=== PATIENT | female | born 1985 | race Caucasian/White ===

== ENCOUNTER 2022-12-11 18:18 | Observation (INO) ==
--- NOTE | 2022-12-11 18:27 | ED Triage Note ---
Date of Service December 11, 2022 History of Present Illness This patient was briefly evaluated while in triage. An abbreviated physical exam was performed. This patient is a 37-year-old Female who presents to the ED for evaluation of sharp stabbing right sided upper abdominal pain that radiates into her back. Began yesterday. standing and moving makes it worse. never had anything like this before. Had diarrhea x 2 days before symptoms began. No nausea or vomiting. No urinary symptoms. Hx hysterectomy and appendectomy. Hx kidney stones and this does not feel similar to stones. Physical Exam CONSTITUTIONAL: mildly uncomfortable SKIN: pink, warm, dry CARDIAC: regular rate and rhythm RESPIRATORY: in no respiratory distress, lungs clear to auscultation ABDOMEN: positive RUQ tenderness, positive ho sign. positive tenderness in R flank Initial orders for labs and / or imaging were placed and patient was placed in the waiting area until a bed is available. Please see further documentation for the full ED course.
[2022-12-11 19:19] LABS: Basophils # (auto) 0.03 K/uL (0-0.2); Basophils % (auto) 0.3 %; Eosinophils # (auto) 0.11 K/uL (0-0.50); Eosinophils % (auto) 1.2 %; Hematocrit (blood only) 38.8 % (37.0-47.0); Hemoglobin 13.3 g/dl (12.0-16.0); Immature Granulocytes # (auto) 0.03 K/uL (0.01-0.20); Immature Granulocytes % (auto) 0.3 %; Lymphocytes % (auto) 41.8 %; Mean Corpuscular Hgb Conc 34.3 g/dL (32.0-36.0); Mean Corpuscular Volume 87.4 fL (80.0-100.0); Mean Platelet Volume 9.7 fL (9.4-12.4); Monocytes % (auto) 4.5 %; Neutrophils # (auto) 4.59 K/uL (1.40-6.50); Neutrophils % (auto) 51.9 %; Platelet Count 307 K/uL (130-400); RDW Coefficient of Variation 12.8 % (11.5-14.5); RDW Standard Deviation 40.9 fL (36.4-46.3); Red Blood Count 4.44 M/uL (4.20-5.40); White Blood Count 8.86 K/ul (4.8-10.8)
[2022-12-11 19:23] LABS: Appearance Urine Clear (Clear); Bilirubin Urine Negative (Negative); Blood Urine Negative (Negative); Color Urine Yellow; Glucose Urine UA Negative (Negative); Ketones Urine Negative (Negative); Leukocyte Esterase Urine Negative (Negative); Nitrite Urine Negative (Negative); Protein Urine Negative (Negative); Specific Gravity Urine 1.017 (1.000-1.030); Urobilinogen Urine Negative (Negative); pH Urine 5.5 (4.5-7.5)
[2022-12-11 19:35] LABS: Albumin Globulin Ratio 1.3 (0.9-2); Albumin Level 4.4 gm/dl (3.4-5.0); BUN Creatinine Ratio 13.4 (10-20); Bilirubin,Total 0.4 mg/dl (0.2-1.0); Calcium 9.7 mg/dl (8.6-10.3); Creatinine Clr Calc Pharmacy 65.7 ml/min; Est GFR (African American) 67.1 ml/min; Est GFR (Non-African American) 57.9 ml/min; Globulin 3.3 gm/dl (2.5-4.0); Potassium 4.3 mmol/L (3.5-5.1); Total Protein 7.7 gm/dl (6.0-8.3)
--- NOTE | 2022-12-11 21:11 | Ultrasound Report ---
Exam(s): US GALLBLADDER EXAM: US Abdomen Limited, Gallbladder CLINICAL HISTORY: Reason for exam: RUQ pain, positive Barriga sign. TECHNIQUE: Real-time ultrasound of the right upper quadrant with image documentation. COMPARISON: None FINDINGS: Liver: Liver measures 14.3 cm. Increased echogenicity of the liver suggestive of hepatic steatosis. Probable fatty sparing along the gallbladder fossa. Gallbladder: No gallstones or sludge. No gallbladder wall thickening or pericholecystic fluid. Negative sonographic Barriga's sign. Common bile duct: Unremarkable as visualized. No stones. No dilation. Normal common bile duct measuring 2.2 mm. Pancreas: Pancreas is not evaluated due to overlying bowel gas. Right kidney: Right kidney measures 10.7 cm in length. No hydronephrosis or stone. Other vasculature: Patent main portal vein with normal directional flow. Free fluid: No ascites. Other findings: Nonspecific hypoechoic material anterior to the liver which could represent body wall soft tissue. Hematoma is not excluded. IMPRESSION: 1. Hepatic steatosis. 2. No sonographic evidence of acute cholecystitis. 3. Nonspecific hypoechoic material anterior to the liver which could represent body wall soft tissue. Hematoma is not excluded. Electronically signed by: Pj Maldonado M.D. 12/11/22 21:10 PM
[2022-12-11] MEDS ORDERED: MoRPHine SULFATE 4 MG/ML 1 ML CARP\\VIAL IV STA ×2 (21:21→23:26)
[2022-12-11] MEDS ORDERED: ACETAMINOPHEN 1,000 MG/100 ML VIAL IV STA (21:21)
--- NOTE | 2022-12-11 21:37 | Emergency Department Note ---
Impression & Plan Abdominal pain, Diarrhea ED Provider Note ED Provider Note NAME: SERENA CAMILO AGE:37 SEX: Female : 1985 ARRIVES VIA: Private vehicle INFORMANT: Patient ED PROVIDER(s): Raisa Nuñez DO CHIEF COMPLAINT: Abdominal pain HPI: This is a 37-year-old female presents emergency room due to concern for worsening abdominal pain that began last night. Patient states began as a dull pain and along her right upper quadrant and has since become steadily worse radiating around into the right flank. She states in the preceding 2 days she did have diarrhea, denies noting any hematochezia or melena. Patient states she does have a history of intermittent colitis but has been well controlled and has not had a flare in 10 years. She states her last colonoscopy was several years ago and she has an upcoming appointment with GI the end of December. She denies any recent change in diet, new medication, known sick contact, recent travel. She denies fevers, chills, nausea or vomiting. She states no change in the pain w ith position or exertion. No recent change in urine. She has had multiple prior abdominal surgeries. PAST MEDICAL HISTORY:See Below PAST SURGICAL HISTORY:See Below FAMILY HISTORY:See Below SOCIAL HISTORY:See Below HOME MEDICATIONS:See Below ALLERGIES:See Below VITALS:See Below PHYSICAL EXAMINATION: GENERAL: alert, tearful appearing, well nourished, no distress, non-toxic EYE EXAM: normal conjunctiva, PERRL and EOM's grossly intact OROPHARYNX: no exudate, no erythema, lips, buccal mucosa, and tongue normal and mucous membranes are moist NECK: supple, no nuchal rigidity, no adenopathy, non-tender LUNGS: Clear to auscultation. Normal chest wall mechanics, no w/r/r HEART: no murmurs, S1 normal and S2 normal ABDOMEN: abdomen soft, tenderness with palpation in the right upper quadrant, right mid lateral abdomen, and right flank with palpation, normo-active bowel sounds, no masses, no rebound or guarding. BACK: Back is symmetrical on inspection and there is no deformity, no midline tenderness, no CVA tenderness. SKIN: no rashes, petechiae, orbruising UPPER EXTREMITIES: upper extremities are grossly normal. FROM, nml pulses b/l. LOWER EXTREMITIES: No pitting edema. FROM, nml pulses b/l. NEURO EXAM: Normal sensorium, cranial nerves II-XII grossly intact, normal speech, no facial droop,nogross weakness of arms, no gross weakness of legs. Gross sensation intact. No ataxia. Vital Signs: reviewed and remarkable Differential Diagnosis: Differential diagnoses includes but is not limited to gastritis, peptic ulcer disease, GERD, gallbladder disease, pancreatitis, small bowel obstruction, ischemic bowel, irritable bowel disease, irritable bowel syndrome, malignancy, hernia, perforation MEDICAL DECISION MAKING: This is a 37 yo female who presents with RUQ abd pain. VS stable and pt afebrile. Labs drawn and sent, IV established, and patient sent initially for US RUQ to r/o biliary etiology. THis was reassuring so we discussed CT imaging after consideration for additional diagnoses. Patient given IVF and IV morphine for pain. CT reassuring also. She was given tylenol, toradol, and bentyl additionally without improvement and still required additional IV narcotics. Given unclear etiology of pain and with persistent need for IV narcotics to control her pain, we discussed additional inpatient evaluation and monitoring. Patient and family in agreement. Case discussed with hospitalist for additional evaluation and mgmt. I do not suspect occult ACS, dissection, PE, or pna. Consultation(s): 0202: Discussed with Dr. Barnes, hospitalist service. ER Treatment Provided: See below Diagnostics Interpreted By Me: -ECG: [] -Cardiac Monitoring: An order was placed for continuous cardiac monitoring. The monitor shows a rate of 78 with normal sinus rhythm. -Laboratory studies: As stated above and show below. -Imaging studies: US RUQ informally reviewed by me did not show obvious cholelithiasis. 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: No Beliefs That Will Affect Care: None Current Living Situation: Alone Feels Safe at Home: Yes Safety Concerns: Feels Safe At This Time Assistive Devices: None Allergies Allergies Allergy/AdvReac Type Severity Reaction Status Date / Time diazepam [From Valium] Allergy Intermediate HIVES--SEE Verified 12/11/22 21:34 COMMENT latex Allergy Intermediate ITCHY RASH Verified 12/11/22 21:34 meperidine [From Demerol] Allergy Intermediate HIVES--SEE Verified 12/11/22 21:34 COMMENT promethazine [From Phenergan] Allergy Intermediate HIVES--SEE Verified 12/11/22 21:34 COMMENT Home Meds Home Medications Medication Instructions Recorded Confirmed ibuprofen 200 mg tablet (Advil) 400 mg PO DIRECTED PRN 12/11/22 12/11/22 PAIN/FEVER Results & Data (ED) Vital Signs Vital Signs - 24 hr 12/12/22 00:05 12/12/22 00:39 Pulse Rate 71 Pulse Rate [Apical] 69 Respiratory Rate 17 Respiratory Effort / Characteristics Non-Labored Spontaneous Respiratory Depth Normal Blood Pressure [Right Arm] 116/82 Blood Pressure Mean [Right Arm] 93 Blood Pressure Position [Right Arm] Sitting Pulse Oximetry 97 Oxygen Delivery Method Room Air Laboratory Data 12/11/22 18:57 12/11/22 18:57 Lab Results 12/11/22 12/11/22 12/11/22 Range/Units 18:57 18:57 19:05 WBC 8.86 (4.8-10.8) K/ul RBC 4.44 (4.20-5.40) M/uL Hgb 13.3 (12.0-16.0) g/dl Hct 38.8 (37.0-47.0) % MCV 87.4 (80.0-100.0) fL MCH 30.0 (25.0-34.0) pg MCHC 34.3 (32.0-36.0) g/dL RDW Std Deviation 40.9 (36.4-46.3) fL RDW Coeff of Zainab 12.8 (11.5-14.5) % Plt Count 307 (130-400) K/uL MPV 9.7 (9.4-12.4) fL Immature Gran % (Auto) 0.3 % Neut % (Auto) 51.9 % Lymph % (Auto) 41.8 % [place] % (Auto) 4.5 % Eos % (Auto) 1.2 % Baso % (Auto) 0.3 % Neut # (Auto) 4.59 (1.40-6.50) K/uL Lymph # (Auto) 3.70 H (1.2-3.4) K/uL Weston # (Auto) 0.40 (0.11-0.59) K/uL Eos # (Auto) 0.11 (0-0.50) K/uL Baso # (Auto) 0.03 (0-0.2) K/uL Immature Gran # (Auto) 0.03 (0.01-0.20) K/uL Sodium 137 (136-145) mmol/L Potassium 4.3 (3.5-5.1) mmol/L Chloride 105 (98-107) mmol/L Carbon Dioxide 26 (21-32) mmol/L Anion Gap 6 (3-11) BUN 16 (6-23) mg/dl Creatinine 1.19 (0.6-1.2) mg/dl Est Cr Clr Drug Dosing 65.7 ml/min Est GFR ( Amer) 67.1 ml/min Est GFR (Non-Af Amer) 57.9 ml/min BUN/Creatinine Ratio 13.4 (10-20) Glucose 113 H (70-99(Fasting)) mg/dl Calcium 9.7 (8.6-10.3) mg/dl Total Bilirubin 0.4 (0.2-1.0) mg/dl AST 25 (13-39) U/L ALT 38 (7-52) U/L Alkaline Phosphatase 121 H (34-104) U/L Total Protein 7.7 (6.0-8.3) gm/dl Albumin 4.4 (3.4-5.0) gm/dl Globulin 3.3 (2.5-4.0) gm/dl Albumin/Globulin Ratio 1.3 (0.9-2) Lipase 37 (11-82) U/L Procalcitonin (0-0.5) ng/ml Urine Color Yellow Urine Appearance Clear (Clear) Urine pH 5.5 (4.5-7.5) Ur Specific [place] 1.017 (1.000-1.030) Urine Protein Negative (Negative) Urine Glucose (UA) Negative (Negative) Urine Ketones Negative (Negative) Urine Blood Negative (Negative) Urine Nitrite Negative (Negative) Urine Bilirubin Negative (Negative) Urine Urobilinogen Negative (Negative) Ur Leukocyte Esterase Negative (Negative) SARS-CoV-2 (PCR) (Negative) Influenza Type A (PCR) (Neg) Influenza Type B (PCR) (Neg) RSV (RT-PCR) (Neg) 12/11/22 12/12/22 Range/Units 19:05 01:32 WBC (4.8-10.8) K/ul RBC (4.20-5.40) M/uL Hgb (12.0-16.0) g/dl Hct (37.0-47.0) % MCV (80.0-100.0) fL MCH (25.0-34.0) pg MCHC (32.0-36.0) g/dL RDW Std Deviation (36.4-46.3) fL RDW Coeff of Zainab (11.5-14.5) % Plt Count (130-400) K/uL MPV (9.4-12.4) fL Immature Gran % (Auto) % Neut % (Auto) % Lymph % (Auto) % [place] % (Auto) % Eos % (Auto) % Baso % (Auto) % Neut # (Auto) (1.40-6.50) K/uL Lymph # (Auto) (1.2-3.4) K/uL [place]on # (Auto) (0.11-0.59) K/uL Eos # (Auto) (0-0.50) K/uL Baso # (Auto) (0-0.2) K/uL Immature Gran # (Auto) (0.01-0.20) K/uL Sodium (136-145) mmol/L Potassium (3.5-5.1) mmol/L Chloride (98-107) mmol/L Carbon Dioxide (21-32) mmol/L Anion Gap (3-11) BUN (6-23) mg/dl Creatinine (0.6-1.2) mg/dl Est Cr Clr Drug Dosing ml/min Est GFR ( Amer) ml/min Est GFR (Non-Af Amer) ml/min BUN/Creatinine Ratio (10-20) Glucose (70-99(Fasting)) mg/dl Calcium (8.6-10.3) mg/dl Total Bilirubin (0.2-1.0) mg/dl AST (13-39) U/L ALT (7-52) U/L Alkaline Phosphatase (34-104) U/L Total Protein (6.0-8.3) gm/dl Albumin (3.4-5.0) gm/dl Globulin (2.5-4.0) gm/dl Albumin/Globulin Ratio (0.9-2) Lipase (11-82) U/L Procalcitonin < 0.05 (0-0.5) ng/ml Urine Color Urine Appearance (Clear) Urine pH (4.5-7.5) Ur Specific [place] (1.000-1.030) Urine Protein (Negative) Urine Glucose (UA) (Negative) Urine Ketones (Negative) Urine Blood (Negative) Urine Nitrite (Negative) Urine Bilirubin (Negative) Urine Urobilinogen (Negative) Ur Leukocyte Esterase (Negative) SARS-CoV-2 (PCR) NEGATIVE (Negative) Influenza Type A (PCR) Negative (Neg) Influenza Type B (PCR) Negative (Neg) RSV (RT-PCR) Negative (Neg) Administered Medications Acetaminophen (Ofirmev) 1,000 mg in 100 mls @ 400 mls/hr IV Q8H PRN PRN Reason: Headache or Pain Stop: 12/15/22 04:57 Last Infusion: 12/12/22 17:39 Dose: 0 mls/hr Documented By: Admin: 12/12/22 17:24 Dose: 400 mls/hr Documented By: Infusion: 12/12/22 05:48 Dose: 0 mls/hr Documented By: ТАТЬЯНА Admin: 12/12/22 05:21 Dose: 400 mls/hr Documented By: ТАТЬЯНА Pantoprazole Sodium 40 mg/ (Syringe) 10 mls @ 5 mls/min IV Q12 JAVIER Stop: 01/11/23 20:59 Last Admin: 12/12/22 20:37 Dose: 5 mls/min Documented By: BARRY Morphine Sulfate (Morphine Sulfate 4 Mg/Ml 1 Ml Carp\Vial) 4 mg IV Q3H PRN PRN Reason: Severe Pain (Scale 7, 8, 9,10) Stop: 12/26/22 14:21 Last Admin: 12/12/22 19:28 Dose: 4 mg Documented By: Admin: 12/12/22 15:20 Dose: 4 mg Documented By: SARAI Polyethylene Glycol (Polyethylene (Miralax) 17 Gm Pack) 17 gm PO DAILY JAVIER Stop: 01/11/23 08:59 Last Admin: 12/12/22 11:44 Dose: Not Given Documented By: AU Discontinued Medications Dicyclomine HCl (Dicyclomine Hcl 10 Mg Cap) 10 mg PO NOW ONE Stop: 12/12/22 00:45 Last Admin: 12/12/22 00:59 Dose: 10 mg Documented By: TOY Acetaminophen (Ofirmev) 1,000 mg in 100 mls @ 400 mls/hr IV NOW STA Stop: 12/11/22 21:35 Last Infusion: 12/11/22 21:54 Dose: 0 mls/hr Documented By: Admin: 12/11/22 21:30 Dose: 400 mls/hr Documented By: ELISA Sodium Chloride (Nss 1000ml) 1,000 mls @ 125 mls/hr IV .Q8H JAVIER Stop: 01/11/23 00:59 Last Infusion: 12/12/22 16:12 Dose: 0 mls/hr Documented By: Admin: 12/12/22 09:28 Dose: 125 mls/hr Documented By: Infusion: 12/12/22 09:01 Dose: 125 mls/hr Documented By: Admin: 12/12/22 01:01 Dose: 125 mls/hr Documented By: TOY Sincalide 1.7 mcg/ Sodium (Chloride) 101.7 mls @ 200 mls/hr IV TODAY@1330 JAVIER Stop: 12/12/22 18:00 Last Infusion: 12/12/22 14:36 Dose: 0 mls/hr Documented By: Admin: 12/12/22 14:05 Dose: 200 mls/hr Documented By: ZANE Ioversol (Optiray 350 100ml) 86 ml IV ONCE ONE Stop: 12/11/22 21:47 Last Admin: 12/11/22 21:47 Dose: 86 ml Documented By: SANAM Ketorolac Tromethamine (Ketorolac Tromethamine 15 Mg/Ml Vial) 10 mg IV NOW ONE Stop: 12/12/22 00:45 Last Admin: 12/12/22 00:59 Dose: 10 mg Documented By: TOY Ketorolac Tromethamine (Ketorolac Tromethamine 15 Mg/Ml Vial) 10 mg IV NOW ONE Stop: 12/12/22 07:32 Last Admin: 12/12/22 07:44 Dose: 10 mg Documented By: YOKASTA Morphine Sulfate (Morphine Sulfate 4 Mg/Ml 1 Ml Carp\Vial) 4 mg IV NOW STA Stop: 12/11/22 21:22 Last Admin: 12/11/22 21:30 Dose: 4 mg Documented By: RSL Morphine Sulfate (Morphine Sulfate 4 Mg/Ml 1 Ml Carp\Vial) 4 mg IV NOW STA Stop: 12/11/22 23:27 Last Admin: 12/11/22 23:38 Dose: 4 mg Documented By: CC Morphine Sulfate (Morphine Sulfate 4 Mg/Ml 1 Ml Carp\Vial) 4 mg IV Q3H PRN PRN Reason: Pain (6,7,8,9,10) Stop: 12/26/22 01:57 Last Admin: 12/12/22 02:10 Dose: 4 mg Documented By: CC Imaging Data Radiologist's Impression: Gallbladder Ultrasound 12/11/22 18:28 Exam(s): US GALLBLADDER EXAM: US Abdomen Limited, Gallbladder CLINICAL HISTORY: Reason for exam: RUQ pain, positive Barriga sign. TECHNIQUE: Real-time ultrasound of the right upper quadrant with image documentation. COMPARISON: None FINDINGS: Liver: Liver measures 14.3 cm. Increased echogenicity of the liver suggestive of hepatic steatosis. Probable fatty sparing along the gallbladder fossa. Gallbladder: No gallstones or sludge. No gallbladder wall thickening or pericholecystic fluid. Negative sonographic Barriga's sign. Common bile duct: Unremarkable as visualized. No stones. No dilation. Normal common bile duct measuring 2.2 mm. Pancreas: Pancreas is not evaluated due to overlying bowel gas. Right kidney: Right kidney measures 10.7 cm in length. No hydronephrosis or stone. Other vasculature: Patent main portal vein with normal directional flow. Free fluid: No ascites. Other findings: Nonspecific hypoechoic material anterior to the liver which could represent body wall soft tissue. Hematoma is not excluded. IMPRESSION: 1. Hepatic steatosis. 2. No sonographic evidence of acute cholecystitis. 3. Nonspecific hypoechoic material anterior to the liver which could represent body wall soft tissue. Hematoma is not excluded. Electronically signed by: Pj Maldonado M.D. 12/11/22 21:10 PM Abdomen/Pelvis CT 12/11/22 21:21 Exam(s): CT ABDOMEN + PELVIS With Contrast EXAM: CT Abdomen and Pelvis With Intravenous Contrast CLINICAL HISTORY: Reason for exam: right sided abd pain. TECHNIQUE: Axial computed tomography images of the abdomen and pelvis with intravenous contrast. Automated exposure control was utilized for the study. A dose lowering technique was utilized adhering to the principles of ALARA. CONTRAST: Contrast must be dictated COMPARISON: No relevant prior studies available. FINDINGS: Lung bases: Unremarkable. No mass. No consolidation. ABDOMEN: Liver: Hepatic steatosis. Gallbladder and bile ducts: Unremarkable. No calcified stones. No ductal dilation. Pancreas: Unremarkable. No mass. No ductal dilation. Spleen: Unremarkable. No splenomegaly. Adrenals: Unremarkable. No mass. Kidneys and ureters: Unremarkable. No hydronephrosis or delayed nephrogram. Stomach and bowel: Diverticulosis, without acute diverticulitis. No small bowel obstruction. No free intraperitoneal air. PELVIS: Appendix: No acute appendicitis. Bladder: Decompressed urinary bladder. Reproductive: Unremarkable as visualized. ABDOMEN and PELVIS: Intraperitoneal space: Unremarkable. No free air. No significant fluid collection. Bones/joints: No acute fracture. No dislocation. Soft tissues: Unremarkable. Vasculature: Unremarkable. No abdominal aortic aneurysm. Lymph nodes: Unremarkable. No enlarged lymph nodes. IMPRESSION: No acute findings in the abdomen or pelvis. Electronically signed by: Ángel Joseph MD 12/11/22 23:57 PM Discharge Plan Visit Data Chief Complaint: Flank Pain Stated Complaint: SEVERE FLANK PAIN R SIDE,INTO BACK ED Provider: Raisa Nuñez Discharge Problem: Abdominal pain, Diarrhea Patient Disposition: Admitted As Inpatient Discharge Instructions Interventions: ED Discharge Assessment Last Done: 12/12/22 04:11
[2022-12-11] MEDS ORDERED: OPTIRAY 350 100ml IV ONE (21:46)
--- NOTE | 2022-12-11 23:58 | CT Scan Report ---
Exam(s): CT ABDOMEN + PELVIS With Contrast EXAM: CT Abdomen and Pelvis With Intravenous Contrast CLINICAL HISTORY: Reason for exam: right sided abd pain. TECHNIQUE: Axial computed tomography images of the abdomen and pelvis with intravenous contrast. Automated exposure control was utilized for the study. A dose lowering technique was utilized adhering to the principles of ALARA. CONTRAST: Contrast must be dictated COMPARISON: No relevant prior studies available. FINDINGS: Lung bases: Unremarkable. No mass. No consolidation. ABDOMEN: Liver: Hepatic steatosis. Gallbladder and bile ducts: Unremarkable. No calcified stones. No ductal dilation. Pancreas: Unremarkable. No mass. No ductal dilation. Spleen: Unremarkable. No splenomegaly. Adrenals: Unremarkable. No mass. Kidneys and ureters: Unremarkable. No hydronephrosis or delayed nephrogram. Stomach and bowel: Diverticulosis, without acute diverticulitis. No small bowel obstruction. No free intraperitoneal air. PELVIS: Appendix: No acute appendicitis. Bladder: Decompressed urinary bladder. Reproductive: Unremarkable as visualized. ABDOMEN and PELVIS: Intraperitoneal space: Unremarkable. No free air. No significant fluid collection. Bones/joints: No acute fracture. No dislocation. Soft tissues: Unremarkable. Vasculature: Unremarkable. No abdominal aortic aneurysm. Lymph nodes: Unremarkable. No enlarged lymph nodes. IMPRESSION: No acute findings in the abdomen or pelvis. Electronically signed by: Ángel Joseph MD 12/11/22 23:57 PM
[2022-12-12] MEDS ORDERED: KETOROLAC TROMETHAMINE 15 MG/ML VIAL IV ONE ×2 (00:44→07:31)
[2022-12-12] MEDS ORDERED: DICYCLOMINE HCL 10 MG CAP PO ONE (00:44)
[2022-12-12] MEDS: SODIUM CHLORIDE 0.9% 1000ML 1,000 ML IV SCH ×2 (01:01→09:28)
--- NOTE | 2022-12-12 01:52 | History & Physical Report ---
Date of Service December 12, 2022 Assessment & Plan (1) Right upper quadrant pain: Plan: 37 F with no significant PMH, family history of colon cancer, who presents with abdominal pain, diarrhea x2 days. Now admitted for further work-up of abdominal pain Right upper quadrant pain -Afebrile. Hemodynamically stable. No leukocytosis. Mildly elevated alkaline phosphatase (121). AST/ALT normal. -Hepatic steatosis on RUQ US. No gallstones or gallbladder wall thickening seen. CT A/P negative. -Patient symptoms still clinically consistent with cholecystitis/other hepatobiliary pathology. * Admit to [facility] * HIDA scan ordered * NPO. IV NS@maintenance rate. * IV morphine for pain control. * Trend LFTs, transaminases. Code: Full code Dispo: Med-Surg FEN/GI: NPO. NSS@maintenance rate DVT Prophylaxis: Lovenox 40 mg q24h PT/OT: No Consults: History of Present Illness Primary Care Provider: Melvina Clifford Mirian is a 37-year-old woman with no significant past medical history, who presents today with new onset abdominal pain radiating to the flank and back since yesterday. She also reports diarrhea x2 days, as well as pain with defecation radiating to the back, since yesterday. Pain has been refractory to multiple doses of p.o. ibuprofen. She came to the emergency room after the abdominal pain radiated to her back became more constant after initially presenting intermittently. In the ED, labs were mostly normal. AST and ALT were both normal. Urinalysis was negative. However, she had an elevated alkaline phosphatase of 121. Lipase was normal at 37. CT A/P was mostly negative. However, right upper quadrant ultrasound showed hepatic steatosis. No gallstones or gallbladder wall thickening were noted on imaging. She received IV Toradol, IV morphine, IV Tylenol, and p.o. dicyclomine. She was then started on IV fluids and hospitalist was consulted for admission. On admission, she continues to report excruciating RUQ abdominal pain, 8/10. She denies headache, chest pain, shortness of breath, nausea, vomiting, melena, hematochezia, or fever/chills. She has a family history of colon cancer and sees GI regularly for routine colonoscopies. She initially tried to reach out to GI specialist but earliest appointment in December. She denies alcohol consumption x2 years. Allergies Allergy/AdvReac Type Severity Reaction Status Date / Time diazepam [From Valium] Allergy Intermediate HIVES--SEE Verified 12/11/22 21:34 COMMENT latex Allergy Intermediate ITCHY RASH Verified 12/11/22 21:34 meperidine [From Demerol] Allergy Intermediate HIVES--SEE Verified 12/11/22 21:34 COMMENT promethazine [From Phenergan] Allergy Intermediate HIVES--SEE Verified 12/11/22 21:34 COMMENT Home Medications Medication Instructions Recorded Confirmed Type ibuprofen 200 mg tablet (Advil) 400 mg PO DIRECTED PRN 12/11/22 12/11/22 History PAIN/FEVER Past Med/Surg History Social History Smoking Status: Never smoker Hx Alcohol Use: Yes Alcohol type: beer Hx Substance Use: No Preferred Language: Northern Irish Communication Ability: Effective Seo Coordinator Required: No Beliefs That Will Affect Care: None Current Living Situation: Alone Feels Safe at Home: Yes Safety Concerns: Feels Safe At This Time Assistive Devices: None Review of Systems Review of Systems: All systems reviewed & are unremarkable except as noted in HPI & below Physical Exam Physical Exam: General: Mildly obese woman in moderate distress. HEENT: PERRLA. Normal conjunctiva, anicteric sclera. Oropharynx normal. Respiratory: Normal respiratory effort, CTABL. Cardiovascular: RRR without murmurs, gallops, or rubs. No edema. GI: RUQ tenderness to palpation. Positive Barriga sign. Right flank/back tenderness to palpation. Neuro: Alert and oriented x3. Results & Data Results & Data Vital Signs (Past 12 Hours) Vital Signs Temp Pulse Pulse Resp BP BP Pulse Ox 12/12/22 00:39 71 12/12/22 00:05 69 17 116/82 97 12/11/22 21:55 81 20 127/83 98 12/11/22 18:23 36.6 C 75 16 131/89 98 O2 Del Method 12/12/22 00:39 12/12/22 00:05 Room Air 12/11/22 21:55 Room Air 12/11/22 18:23 Supervising Physician Co-Signing Physician Notes Patient seen and examined, chart reviewed, case discussed with Dr. Watson and I agree with the assessment and plan as above. In brief, patient is a 37yo female with history no significant past medical history presenting with ongoing of RUQ and flank pain ongoing. On exam she is afebrile, HD stable Skin - no jaundice HEENT - MMM, Neck supple, no icterus Heart - +S1/S2, regular, no m/r/g Lungs - CTA Abd - +BS, soft, tender in RUQ with +Barriga's sign Ext - warm, well perfused Labs and images reviewed. No leukocytosis. Mild elevation of AP at 121. Gallbladder ultrasound with hepatic steatosis, no evidence of acute cholecystitis. Hypoechoic material in liver possibly body wall soft tissue vs hematoma Abdominal/Pelvis CT - no acute findings Assessment/plan 37yo female with ongoing RUQ pain, severe. Suspect gallbladder? Imaging thus far has been unremarkable -Check HIDA scan -Pain control, antiemetics as needed -Remainder as above Resident Activity Tracking Resident Involvement: Resident Care Provided Care Provided: Adult Hospital Medicine
[2022-12-12] MEDS ORDERED: MoRPHine SULFATE 4 MG/ML 1 ML CARP\\VIAL IV PRN (01:58)
[2022-12-12] MEDS ORDERED: MoRPHine SULFATE 2 MG/ML CARP IV PRN ×2 (01:58→14:22)
[2022-12-12 02:20] LABS: Influenza A virus by PCR Negative (Neg); Influenza B virus by PCR Negative (Neg); RSV by PCR Negative (Neg); SARS CoV2 RNA(COVID-19) Ceph NEGATIVE (Negative)
[2022-12-12] MEDS: ACETAMINOPHEN 1,000 MG/100 ML VIAL IV PRN ×2 (05:21→17:24)
[2022-12-12] MEDS: POLYETHYLENE (MIRALAX) 17 GM PACK PO SCH (11:44)
[2022-12-12] MEDS ORDERED: SINCALIDE 1.7 MCG in 0.9 % SODIUM CHLORIDE 100 ML IV SCH (13:30)
--- NOTE | 2022-12-12 14:58 | Nuclear Medicine Report ---
NUCLEAR MEDICINE HEPATOBILIARY SCAN WITH EJECTION FRACTION HISTORY: RUQ pain COMPARISON: Abdominal ultrasound 12/11/2022. TECHNIQUE: Immediately following the intravenous administration of 5.0 mCi Tc-99m Choletec, dynamic a nterior abdominal imaging pre/post 1.7 mcg of Kinevac was performed. FINDINGS: Uniform hepatic tracer accumulation is shown. Prompt intrahepatic biliary excretion is seen. The gall bladder, common bile duct, and small bowel are all visualized by 20 minutes. This appearance represen ts the normal sequence of biliary excretion. The gall bladder ejection fraction following administration of Kinevac was 83% (normal >35%). IMPRESSION: 1. No evidence for cystic duct obstruction. 2. Gallbladder ejection fraction calculated to be 83 %. ACT 112: Negative or not required by law. Electronically signed by: Wesly Sanon M.D. 12/12/2022 2:57 PM
--- NOTE | 2022-12-12 15:17 | Hospitalist Progress Note ---
Date of Service December 12, 2022 Assessment & Plan (1) Right upper quadrant pain: Plan: 37 F with no significant PMH, family history of colon cancer, who presents with abdominal pain, diarrhea x2 days. Now admitted for further work-up of abdominal pain Right upper quadrant/ Epigastric pain -Afebrile. Hemodynamically stable. No leukocytosis. Mildly elevated alkaline phosphatase (121). AST/ALT normal. -Hepatic steatosis on RUQ US. No gallstones or gallbladder wall thickening seen. CT A/P negative. -US, CT, HIDA all negative--> not indicative of gallbladder pathology at this time -Lipase negative -Risk factors present for stomach/duodenal ulcer--> daily NSAID use w/o gi protection, stress * NPO after midnight, GI consulted to [facility] for endoscopy need, appreciate recs. * IV morphine for pain control. Code: Full code Dispo: Med-Surg FEN/GI: Low fat, NPO after midnight DVT Prophylaxis: Lovenox 40 mg q24h PT/OT: No Consults: GI Admission and Anticipated Discharge Date Admission Date: ATTESTATION I also saw the patient and confirmed mosley portions of the history and exam. I agree with the impression and plan in the resident documentation, and as summarized below. She is resting in bed. Complains of right upper quadrant pain. She tried eating some potato chips, seemingly made a little bit worse. She does note having panendoscopy about 2-3 years ago -per her recollection, colonoscopy demonstrated diverticulosis and some colonic polyps. She does not recall the results of the upper endoscopy. Apparently both done in [facility]. EXAM 130/84, 70, 21, 36.7, 99% room air Alert and oriented. Heart regular rate and rhythm Respirations nonlabored Right upper quadrant tenderness. No rebound DATA Labs Admission laboratory data relatively unremarkable except for mildly elevated alkaline phosphatase of [address] scan abdomen and pelvis completed 12/11/2022 shows no acute findings in the abdomen or pelvis. HIDA scan completed today shows no evidence of cystic duct obstruction, gallbladder ejection fraction calculated be 83% IMPRESSION & PLAN Right upper quadrant pain Agree with GI consultation N.p.o. after midnight in case they wish to pursue upper endoscopy Continue Protonix 40 mg IV twice daily Morphine as needed pain Zofran as needed nausea Additional per resident documentation Subjective Patient seen at bedside this morning. No acute events reported overnight. Patient large amount of discomfort and tearful during discussion. Seems to have a 2-day progressively worsening right upper quadrant pain that does not seem to be associated with food. No nausea or vomiting. Does have some loose stools for the past 2 days. No blood in the stool. No vomiting. She did eat yesterday which did not worsen her symptoms. Notes the pain radiates to her back and also is in her epigastrium as well. Continually asked for pain medication. Otherwise no other complaints at this time. Review of Systems Review of Systems: Per HPI Physical Exam Constitutional: WD/WN, vitals as above Eyes: + anicteric sclerae Neck: normal visual inspection Respiratory: normal respiratory effort Cardiovascular: RRR, no murmur, no edema Gastrointestinal (Abdomen): Inspection/Auscultation: abdomen normal to inspection and normal bowel sounds; abdomen not distended Percussion/Palpation: + abdomen tender (Very tender in the RUQ and epigastrum) Musculoskeletal: Head/Neck/Chest: normocephalic and head atraumatic Skin: no rashes, warm and dry Neurologic: moves all extremities Results & Data Results & Data Vital Signs (Past 12 Hours) Vital Signs Temp Pulse Pulse Resp BP Pulse Ox O2 Del Method 12/12/22 08:05 36.7 C 74 18 110/66 95 Room Air 12/12/22 04:54 36.5 C 88 16 137/79 97 Room Air
[2022-12-12] MEDS: MoRPHine SULFATE 4 MG/ML 1 ML CARP\\VIAL IV PRN ×2 (15:20→19:28)
[2022-12-12] MEDS: PANTOprazole 40 MG in SYRINGE 0 ML IV SCH (20:37)
[2022-12-13] MEDS: MoRPHine SULFATE 4 MG/ML 1 ML CARP\\VIAL IV PRN ×6 (04:16→21:45)
[2022-12-13 07:04] LABS: Hematocrit (blood only) 39.4 % (37.0-47.0); Hemoglobin 13.3 g/dl (12.0-16.0); Mean Corpuscular Hemoglobin 29.9 pg (25.0-34.0); Mean Corpuscular Hgb Conc 33.8 g/dL (32.0-36.0); Mean Corpuscular Volume 88.5 fL (80.0-100.0); Mean Platelet Volume 9.6 fL (9.4-12.4); Platelet Count 264 K/uL (130-400); RDW Coefficient of Variation 12.7 % (11.5-14.5); Red Blood Count 4.45 M/uL (4.20-5.40)
[2022-12-13 07:27] LABS: Bilirubin,Total 0.4 mg/dl (0.2-1.0); Calcium 9.5 mg/dl (8.6-10.3); Magnesium 1.9 mg/dl (1.7-2.4); Potassium 4.4 mmol/L (3.5-5.1)
[2022-12-13 07:33] LABS: Albumin Globulin Ratio 1.4 (0.9-2); BUN Creatinine Ratio 17.6 (10-20); Creatinine Clr Calc Pharmacy 88.1 ml/min; Est GFR (African American) 92.8 ml/min; Globulin 2.9 gm/dl (2.5-4.0); Total Protein 6.9 gm/dl (6.0-8.3)
[2022-12-13 07:39] LABS: Estimated Average Glucose 114 mg/dl; Hemoglobin A1C 5.6 % (4.5-5.6)
[2022-12-13] MEDS: LACTATED RINGER'S 1,000 ML IV SCH ×2 (07:45→21:13)
[2022-12-13] MEDS: PANTOprazole 40 MG in SYRINGE 0 ML IV SCH ×2 (08:42→20:59)
[2022-12-13] MEDS: ONDANSETRON INJ 2 MG/ML 2 ML VIAL IV PRN ×2 (08:42→18:27)
--- NOTE | 2022-12-13 10:13 | Gastrointestinal Consultation ---
Date of Consultation December 13, 2022 Assessment & Plan (1) Abdominal pain: Discussed case with Dr. Moses who helped advised on plan. - patient is agreeable to EGD today to further evaluate. - continue protonix 40mg IV BID. - we discussed avoiding nsaids. (2) Fatty liver: - patient tells me she is aware of this. we discussed diet and exercise. discussed possible progression to cirrhosis. she tells me she is working on weight loss. Supervising Physician Co-Signing Physician Notes Agree with QUANG Davis as above Abd: Soft, tender, ND, +BS Continue current therapy and supportive care Proceed with EGD now History of Present Illness Reason for Consultation: epigastric/RUQ tenderness Requesting Physician: Beny Musa DO Attending Physician: Venancio Ta DO History of Present Illness 37 year old female who presented to the ED for evaluation of sharp, stabbing, RUQ/epigastric abdominal pain that radiates into her back. she tells me that she has had this pain off and on since August 2022 however it got significantly worse 2 days ago. rated 10/10. she also admits to nausea. she tells me that since August 2022 she has been using advil frequently for pain. She typically sees GI in [place] but they were not able to see her until December so she came to the hospital. She was started on PPI BID but has not felt any change in symptoms. she denies tobacco or etoh use. she tells me bowels are predominantly constipated as an outpatient. She can go a week between bowel movements. she does admit to some diarrhea for 2 days prior to admission. no stools since being admitted. she denies any brbpr or melena. denies any emesis, heartburn, dysphagia, unintentional weight loss. Per patient, last colonoscopy was in 2020 with diverticulosis (I do not have records) and was done in [place]. she tells me she has not had an egd before. 12/13/22 cbc, lfts unremarkable. US 12/11/22 fatty liver, nonspecific hypoechoic material anterior to liver that is possibly hematoma CT abdomen/pelvis 12/11 unremarkable. HIDA 12/12/22 EF 83% Allergies Allergy/AdvReac Type Severity Reaction Status Date / Time diazepam [From Valium] Allergy Intermediate HIVES--SEE Verified 12/11/22 21:34 COMMENT latex Allergy Intermediate ITCHY RASH Verified 12/11/22 21:34 meperidine [From Demerol] Allergy Intermediate HIVES--SEE Verified 12/11/22 21:34 COMMENT promethazine [From Phenergan] Allergy Intermediate HIVES--SEE Verified 12/11/22 21:34 COMMENT Home Medications Medication Instructions Recorded Confirmed Type ibuprofen 200 mg tablet (Advil) 400 mg PO DIRECTED PRN 12/11/22 12/11/22 History PAIN/FEVER Patient History Social History Smoking Status: Never smoker Hx Alcohol Use: Yes Alcohol type: beer Hx Substance Use: No Preferred Language: Wolof Communication Ability: Effective Tandem Mill Roller Required: No Beliefs That Will Affect Care: None Current Living Situation: Alone Feels Safe at Home: Yes Safety Concerns: Feels Safe At This Time Assistive Devices: None Review of Systems Review of Systems: All systems reviewed & are unremarkable except as noted in HPI & below Physical Exam Constitutional: WD/WN, vitals as above Respiratory: normal respiratory effort, lungs clear to auscultation Cardiovascular: RRR, no murmur, no edema Gastrointestinal (Abdomen): epigastric/RUQ tenderness to palpation, no guarding, soft. normal bowel sounds. Skin: no rashes, warm and dry Psychiatric: Orientation: alert and oriented x 3 Affect: euthymic affect Results & Data Vital Signs (Past 12 Hours) Vital Signs Temp Pulse Resp BP Pulse Ox O2 Del Method 12/13/22 07:00 97.9 F 70 18 130/83 97 Room Air PG Care Time/CCT Total # of Minutes Spent Total Time Spent with Patient: Total time spent is greater than 50% in coordination of care (as documented) at patient's floor/unit and/or counseling patient: Coding Level of Care Code 59995 IN/OBS CONSULT LVL 3,45M Diagnoses Abdominal pain R10.9 Fatty liver K76.0 Time Spent (min) 50
[2022-12-13] MEDS: ACETAMINOPHEN 1,000 MG/100 ML VIAL IV PRN ×2 (10:20→19:40)
[2022-12-13] MEDS ORDERED: PANTOprazole 40 MG in SYRINGE 0 ML IV SCH (11:00)
--- NOTE | 2022-12-13 11:42 | Anesthesiology Consultation ---
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 Surgery Operation Date: 12/13/22 16:55 Proposed Procedures p Esophagogastroduodenoscopy Dr Moses - Александр Moses, DO Height/Weight Height: 5 ft 4 in Weight: 84.395 kg Allergies Allergy/AdvReac Type Severity Reaction Status Date / Time diazepam [From Valium] Allergy Intermediate HIVES--SEE Verified 12/11/22 21:34 COMMENT latex Allergy Intermediate ITCHY RASH Verified 12/11/22 21:34 meperidine [From Demerol] Allergy Intermediate HIVES--SEE Verified 12/11/22 21:34 COMMENT promethazine [From Phenergan] Allergy Intermediate HIVES--SEE Verified 12/11/22 21:34 COMMENT Medications Home Medications Medication Instructions Recorded Confirmed Last Taken ibuprofen 200 mg tablet (Advil) 400 mg PO DIRECTED PRN 12/11/22 12/11/22 12/11/22 15:00 PAIN/FEVER Active Medications Generic Name Dose Route Start Last Admin Trade Name Adeelq PRN Reason Stop Dose Admin Acetaminophen 1,000 mg in 100 mls @ 400 mls/hr 12/12/22 04:58 12/13/22 11:20 Ofirmev IV 12/15/22 04:57 Infused Q8H PRN Infusion Headache or Pain Pantoprazole Sodium 40 mg/ 10 mls @ 5 mls/min 12/12/22 21:00 12/13/22 08:42 Syringe IV 01/11/23 20:59 5 mls/min Q12 JAVIER Administration Lactated Ringer's 1,000 mls @ 80 mls/hr 12/13/22 07:00 12/13/22 07:45 Lr IV 12/14/22 07:59 80 mls/hr .[id number] JAVIER Administration Morphine Sulfate 2 mg 12/12/22 14:22 12/12/22 22:50 Morphine Sulfate 2 Mg/Ml Carp IV 12/26/22 14:21 2 mg Q3H PRN Administration Moderate Pain (Scale 4, 5, 6) Morphine Sulfate 4 mg 12/12/22 14:22 12/13/22 11:09 Morphine Sulfate 4 Mg/Ml 1 Ml Carp\Vial IV 12/26/22 14:21 4 mg Q3H PRN Administration Severe Pain (Scale 7, 8, 9,10) Ondansetron HCl 4 mg 12/12/22 01:58 12/13/22 08:42 Ondansetron Inj 2 Mg/Ml 2 Ml Vial IV 01/11/23 01:57 4 mg Q6H PRN Administration Nausea And Vomiting Polyethylene Glycol 17 gm 12/12/22 09:00 12/12/22 11:44 Polyethylene (Miralax) 17 Gm Pack PO 01/11/23 08:59 Not Given DAILY JAVIER Social History Smoking Status: Never smoker Hx Alcohol Use: Yes Alcohol type: beer alcohol intake frequency: holidays/special occasions only Hx Substance Use: No Physical Exam Vital Signs Last Vital Signs Temp 98.2 F 12/13/22 11:00 Pulse 79 12/13/22 11:00 Resp 20 12/13/22 11:00 BP 141/83 H 12/13/22 11:00 Pulse Ox 98 12/13/22 11:00 O2 Del Method Room Air 12/13/22 11:00 Testing Laboratory Results 12/13/22 06:41 12/13/22 06:41 Hemoglobin A1c 5.6 % (4.5-5.6) 12/13/22 06:41 Urine Color Yellow 12/11/22 19:05 Urine Appearance Clear (Clear) 12/11/22 19:05 Urine pH 5.5 (4.5-7.5) 12/11/22 19:05 Ur Specific [place] 1.017 (1.000-1.030) 12/11/22 19:05 Urine Protein Negative (Negative) 12/11/22 19:05 Urine Glucose (UA) Negative (Negative) 12/11/22 19:05 Urine Ketones Negative (Negative) 12/11/22 19:05 Urine Nitrite Negative (Negative) 12/11/22 19:05 Ur Leukocyte Esterase Negative (Negative) 12/11/22 19:05
[2022-12-13] MEDS ORDERED: LIDOCAINE 2% MPF LOCAL 5 ML VIAL ONE (14:04)
[2022-12-13] MEDS ORDERED: PROPOFOL IV EMULSION 10 MG/ML 20 ML VIAL IV ONE (14:04)
[2022-12-13] MEDS ORDERED: ONDANSETRON INJ 2 MG/ML 2 ML VIAL ONE (14:09)
[2022-12-13] MEDS ORDERED: GLYCOPYRROLATE 0.2 MG/ML VIAL ONE (14:09)
[2022-12-13] MEDS ORDERED: fentaNYL citrate PF 100 MCG/2 ML VIAL ONE (14:09)
[2022-12-13] MEDS ORDERED: MIDAZOLAM HCL 1 MG/ML 2ML VIAL ONE (14:17)
--- NOTE | 2022-12-13 14:52 | Anesthesiology Progress Note ---
Date of Service December 13, 2022 Anesthesia Post Procedure Vital Signs Vital Signs: Temp Pulse Resp BP BP Pulse Ox O2 Del Method 12/13/22 14:39 103 H 16 125/83 96 Room Air 12/13/22 13:07 97.2 F L 78 16 113/76 94 Room Air 12/13/22 11:00 98.2 F 79 20 141/83 H 98 Room Air 12/13/22 07:00 97.9 F 70 18 130/83 97 Room Air 12/12/22 22:00 98.2 F 76 16 114/70 97 Room Air 12/12/22 15:17 98.1 F 70 21 130/84 99 Room Air Pain Intensity Right Abdomen: Pain Intensity: 8 Transfer of Care Handoff Completed per policy Notes Mental Status: alert / awake / arousable and participated in evaluation Patient Amnestic to Procedure: Yes Nausea / Vomiting: adequately controlled Pain: adequately controlled Airway Patency, RR, SpO2: stable & adequate BP & HR: stable & adequate Hydration State: stable & adequate Anesthetic Complications: no major complications apparent and Pt Satisfied with anesthetic care
--- NOTE | 2022-12-13 15:23 | GI REPORT ---
Patient Name: Mirian Tong Procedure Date: 12/13/2022 1:47 PM Date of : 1985 Admit Type: Inpatient Age: 37 Gender: Female Attending MD: Александр Moses DO, Procedure: Upper GI endoscopy Providers: Александр Moses DO Referring MD: Referred Self Indications: Epigastric abdominal pain Medicines: Monitored Anesthesia Care Complications: No immediate complications. Estimated Blood Loss: Estimated blood loss: none. Procedure: Pre-Anesthesia Assessment: - Prior to the procedure, a History and Physical was performed, and patient medications and allergies were reviewed. The patient's tolerance of previous anesthesia was also reviewed. The risks and benefits of the procedure and the sedation options and risks were discussed with the patient. All questions were answered, and informed consent was obtained. Prior Anticoagulants: The patient has taken no anticoagulant or antiplatelet agents. ASA Grade Assessment: II - A patient with mild systemic disease. After reviewing the risks and benefits, the patient was deemed in satisfactory condition to undergo the procedure. After obtaining informed consent, the endoscope was passed under direct vision. Throughout the procedure, the patient's blood pressure, pulse, and oxygen saturations were monitored continuously. The Endoscope was introduced through the mouth, and advanced to the second part of duodenum. The upper GI endoscopy was accomplished without difficulty. The patient tolerated the procedure well. Findings: The examined esophagus was normal. Localized mild inflammation characterized by erythema was found in the gastric antrum. Biopsies were taken with a cold forceps for histology. A small amount of food (residue) was found in the gastric body. The examined duodenum was normal. Impression: - Normal esophagus. - Gastritis. Biopsied. - A small amount of food (residue) in the stomach. - Normal examined duodenum. Recommendation: - Return patient to [facility] for ongoing care. - Continue present medications. - Await pathology results. - Advance diet as tolerated. Александр Moses DO 12/13/2022 3:22:22 PM This report has been signed electronically. Note Initiated On: 12/13/2022 1:47 PM Number of Addenda: 0 I attest to the content of the Intraoperative Record and orders documented therein, exceptions below {[id number]}
[2022-12-13] MEDS: POLYETHYLENE (MIRALAX) 17 GM PACK PO SCH (16:00)
--- NOTE | 2022-12-13 18:15 | Hospitalist Progress Note ---
Date of Service December 13, 2022 Assessment & Plan (1) Right upper quadrant pain: Plan: 37 F with no significant PMH, family history of colon cancer, who presents with abdominal pain, diarrhea x2 days. Now admitted for further work-up of abdominal pain Right upper quadrant/ Epigastric pain -Afebrile. Hemodynamically stable. No leukocytosis. Mildly elevated alkaline phosphatase (121). AST/ALT normal. -Hepatic steatosis on RUQ US. No gallstones or gallbladder wall thickening seen. CT A/P negative. -US, CT, HIDA all negative--> not indicative of gallbladder pathology at this time -Lipase negative -Risk factors present for stomach/duodenal ulcer--> daily NSAID use w/o gi protection, stress -EGD showed mild gastritis which gastroenterology feels could account for the patient's pain -Continue twice daily dosing of Protonix, avoid NSAIDs -Likely discharge in the morning. Code: Full code Dispo: Med-Surg FEN/GI: Low fat, NPO after midnight DVT Prophylaxis: Lovenox 40 mg q24h PT/OT: No Consults: GI Admission and Anticipated Discharge Date Admission Date: December 12, 2022 Supervising Physician Co-Signing Physician Notes ATTESTATION I also saw the patient and confirmed mosley portions of the history and exam. I agree with the impression and plan in the resident documentation, and as summa rized below. Patient was seen by gastroenterology today and underwent EGD this afternoon. It did show some area of inflammation retained food; thought that this could account for the patient's symptoms. EXAM 130/73, 100, 14, 36.7, 90% room air Alert and oriented. Heart regular rate and rhythm Respirations nonlabored Mild right upper quadrant tenderness. No rebound DATA Labs CBC and CMP are unremarkable this morning Imaging CT scan abdomen and pelvis completed 12/11/2022 shows no acute findings in the a bdomen or pelvis. HIDA scan completed today shows no evidence of cystic duct obstruction, gallbladder ejection fraction calculated be 83% IMPRESSION & PLAN Right upper quadrant pain EGD as noted Continue PPI twice daily; avoid NSAIDs We will advance diet and see how she does; likely discharge in a.m. if tolerates diet If continued pain, consider addition of Carafate Subjective Patient seen at bedside this morning. No acute events reported overnight. Patient currently on 8 out of 10 pain that is in the right upper q uadrant/epigastric area that radiates to the back. Patient hopeful to have EGD done today to see if there is something going on. Denies any nausea or vomiting. No chest pain or shortness of breath. Reports having an appetite. Otherwise no other complaints at this time. Review of Systems Review of Systems: Per HPI Physical Exam Constitutional: WD/WN, vitals as above Eyes: + anicteric sclerae Neck: normal visual inspection Respiratory: normal respiratory effort Cardiovascular: RRR, no murmur, no edema Gastrointestinal (Abdomen): Inspection/Auscultation: abdomen normal to inspection and normal bowel sounds; abdomen not distended Percussion/Palpation: + abdomen tender (Very tender in the RUQ and epigastrum) Musculoskeletal: Head/Neck/Chest: normocephalic and head atraumatic Skin: no rashes, warm and dry Neurologic: moves all extremities Results & Data Results & Data Vital Signs (Past 12 Hours) Vital Signs Temp Pulse Resp BP Pulse Ox O2 Del Method 12/13/22 15:13 36.7 C 100 H 14 130/73 96 Room Air 12/13/22 15:04 96 H 18 152/92 H 95 Room Air 12/13/22 14:53 93 H 16 138/93 95 Room Air 12/13/22 14:39 103 H 16 125/83 96 Room Air 12/13/22 13:07 36.2 C L 78 16 113/76 94 Room Air 12/13/22 11:00 36.8 C 79 20 141/83 H 98 Room Air 12/13/22 07:00 36.6 C 70 18 130/83 97 Room Air
[2022-12-13] MEDS ORDERED: POLYETHYLENE (MIRALAX) 17 GM PACK PO STA (21:52)
[2022-12-14] MEDS: MoRPHine SULFATE 4 MG/ML 1 ML CARP\\VIAL IV PRN ×4 (01:47→11:40)
[2022-12-14 07:35] LABS: Hematocrit (blood only) 38.4 % (37.0-47.0); Hemoglobin 13.1 g/dl (12.0-16.0); Mean Corpuscular Hemoglobin 29.6 pg (25.0-34.0); Mean Corpuscular Hgb Conc 34.1 g/dL (32.0-36.0); Mean Corpuscular Volume 86.7 fL (80.0-100.0); Mean Platelet Volume 9.6 fL (9.4-12.4); Platelet Count 256 K/uL (130-400); RDW Coefficient of Variation 12.8 % (11.5-14.5); RDW Standard Deviation 40.5 fL (36.4-46.3); Red Blood Count 4.43 M/uL (4.20-5.40); White Blood Count 6.86 K/ul (4.8-10.8)
[2022-12-14 07:42] LABS: Albumin Globulin Ratio 1.4 (0.9-2); BUN Creatinine Ratio 12.8 (10-20); Bilirubin,Total 0.3 mg/dl (0.2-1.0); Calcium 9.5 mg/dl (8.6-10.3); Creatinine Clr Calc Pharmacy 73.6 ml/min; Est GFR (African American) 74.6 ml/min; Est GFR (Non-African American) 64.3 ml/min; Globulin 2.8 gm/dl (2.5-4.0); Magnesium 1.9 mg/dl (1.7-2.4); Phosphorus 4.3 mg/dl (2.5-4.9); Potassium 4.2 mmol/L (3.5-5.1); Total Protein 6.8 gm/dl (6.0-8.3)
--- NOTE | 2022-12-14 08:38 | Discharge Summary ---
Date of Service December 14, 2022 Admission HPI Per Admitting Provider Serena is a 37-year-old woman with no significant past medical history, who presents today with new onset abdominal pain radiating to the flank and back since yesterday. She also reports diarrhea x2 days, as well as pain with defecation radiating to the back, since yesterday. Pain has been refractory to multiple doses of p.o. ibuprofen. She came to the emergency room after the abdominal pain radiated to her back became more constant after initially presenting intermittently. In the ED, labs were mostly normal. AST and ALT were both normal. Urinalysis was negative. However, she had an elevated alkaline phosphatase of 121. Lipase was normal at 37. CT A/P was mostly negative. However, right upper quadrant ultrasound showed hepatic steatosis. No gallstones or gallbladder wall thickening were noted on imaging. She received IV Toradol, IV morphine, IV Tylenol, and p.o. dicyclomine. She was then started on IV fluids and hospitalist was consulted for admission. On admission, she continues to report excruciating RUQ abdominal pain, 8/10. She denies headache, chest pain, shortness of breath, nausea, vomiting, melena, hematochezia, or fever/chills. She has a family history of colon cancer and se es GI regularly for routine colonoscopies. She initially tried to reach out to GI specialist but earliest appointment in December. She denies alcohol consumption x2 years. Admission Exam Per Admitting Provider General: Mildly obese woman in moderate distress. HEENT: PERRLA. Normal conjunctiva, anicteric sclera. Oropharynx normal. Respiratory: Normal respiratory effort, CTABL. Cardiovascular: RRR without murmurs, gallops, or rubs. No edema. GI: RUQ tenderness to palpation. Positive Barriga sign. Right flank/back tenderness to palpation. Neuro: Alert and oriented x3. Principal Diagnosis gastritis Discharge Exam GENERAL: No acute distress. Well developed and well nourished. Vital signs reviewed as above. EYES: EOMI. Anicteric sclerae. HENT: Moist mucous membranes. RESPIRATORY: Clear to auscultation bilaterally. No wheezing, rales, or rhonchi. CARDIOVASCULAR: Regular rate and rhythm. No murmurs. No JVD. ABDOMEN: Soft. Mild diffuse tenderness, most prominent in epigastric and RUQ region, reportedly unchanged from previous examinations. Abd is non-distended. Normal bowel sounds. EXTREMITIES: No gross deformities. SKIN: Warm, dry. NEUROLOGIC: A/O x3. Normal speech. No focal neurological deficits. PSYCHIATRIC: Cooperative. Appropriate mood and affect. Discharge Data Allergies Allergy/AdvReac Type Severity Reaction Status Date / Time diazepam [From Valium] Allergy Intermediate HIVES--SEE Verified 12/11/22 21:34 COMMENT latex Allergy Intermediate ITCHY RASH Verified 12/11/22 21:34 meperidine [From Demerol] Allergy Intermediate HIVES--SEE Verified 12/11/22 21:34 COMMENT promethazine [From Phenergan] Allergy Intermediate HIVES--SEE Verified 12/11/22 21:34 COMMENT Consultations 12/12/22 16:08 Consult Gastroenterology Routine Procedures Performed Operation Date: 12/13/22 16:55 Actual Procedures p EGD Biopsy Cytology - Александр Moses DO [place] GI REPORT Signed Patient:SERENA CAMILO Admit Date:12/12/22 MR#:[id number] Att Phy:Venancio Ta D.O. Acct ID:[id number] Audrey Phy:Melvina Clifford D.O. Date:1985 Fam Phy: Age:37 Location: Sex:F Room/Bed:N3- Ref Phy:Self, Referred cc: ~ DICTATED BY:Александр Moses DO Patient Name: Serena Camilo Procedure Date: 12/13/2022 1:47 PM Date of : 1985 Admit Type: Inpatient Age: 37 Gender: Female Attending MD: Александр Moses DO, Procedure: Upper GI endoscopy Providers: Александр Moses DO Referring MD: Referred Self Indications: Epigastric abdominal pain Medicines: Monitored Anesthesia Care Complications: No immediate complications. Estimated Blood Loss: Estimated blood loss: none. Procedure: Pre-Anesthesia Assessment: - Prior to the procedure, a History and Physical was performed, and patient medications and allergies were reviewed. The patient's tolerance of previous anesthesia was also reviewed. The risks and benefits of the procedure and the sedation options and risks were discussed with the patient. All questions were answered, and informed consent was obtained. Prior Anticoagulants: The patient has taken no anticoagulant or antiplatelet agents. ASA Grade Assessment: II - A patient with mild systemic disease. After reviewing the risks and benefits, the patient was deemed in satisfactory condition to undergo the procedure. After obtaining informed consent, the endoscope was passed under direct vision. Throughout the procedure, the patient's blood pressure, pulse, and oxygen saturations were monitored continuously. The Endoscope was introduced through the mouth, and advanced to the second part of duodenum. The upper GI endoscopy was accomplished without difficulty. The patient tolerated the procedure well. Findings: The examined esophagus was normal. Localized mild inflammation characterized by erythema was found in the gastric antrum. Biopsies were taken with a cold forceps for histology. A small amount of food (residue) was found in the gastric body. The examined duodenum was normal. Impression: - Normal esophagus. - Gastritis. Biopsied. - A small amount of food (residue) in the stomach. - Normal examined duodenum. Recommendation: - Return patient to hospital [facility] for ongoing care. - Continue present medications. - Await pathology results. - Advance diet as tolerated. Александр Moses, DO 12/13/2022 3:22:22 PM This report has been signed electronically. Note Initiated On: 12/13/2022 1:47 PM Number of Addenda: 0 I attest to the content of the Intraoperative Record and orders documented therein, exceptions below Ordered Studies 12/11/22 18:28 US gallbladder Stat 12/11/22 21:21 CT abd pelvis IV con only Stat [facility], [place] [phone] Ultrasound Report Patient:SERENA CAMILO Admit Date:12/11/22 MR#:[id number] Address1:[address] [place] [address] Acct ID:[id number] Address2:[address] Date:1985 [facility] Zip:[place] [address] Age:37 Location:ED Sex:F Room/Bed: Att Phy: Diagnosis:SEVERE FLANK PAIN R SIDE,INTO BACK Audrey Phy:Melvina Clifford D.OWeston Service Date:12/11/22 Fam Phy: Interpreting Phy:Pj Maldonado MDAbenny Phy: Ordering Phy:Chase Danielle PA cc: ~ Exam(s): US GALLBLADDER EXAM: US Abdomen Limited, Gallbladder CLINICAL HISTORY: Reason for exam: RUQ pain, positive Barriga sign. TECHNIQUE: Real-time ultrasound of the right upper quadrant with image documentation. COMPARISON: None FINDINGS: Liver: Liver measures 14.3 cm. Increased echogenicity of the liver suggestive of hepatic steatosis. Probable fatty sparing along the gallbladder fossa. Gallbladder: No gallstones or sludge. No gallbladder wall thickening or pericholecystic fluid. Negative sonographic Barriga's sign. Common bile duct: Unremarkable as visualized. No stones. No dilation. Normal common bile duct measuring 2.2 mm. Pancreas: Pancreas is not evaluated due to overlying bowel gas. Right kidney: Right kidney measures 10.7 cm in length. No hydronephrosis or stone. Other vasculature: Patent main portal vein with normal directional flow. Free fluid: No ascites. Other findings: Nonspecific hypoechoic material anterior to the liver which could represent body wall soft tissue. Hematoma is not excluded. IMPRESSION: 1. Hepatic steatosis. 2. No sonographic evidence of acute cholecystitis. 3. Nonspecific hypoechoic material anterior to the liver which could represent body wall soft tissue. Hematoma is not excluded. Electronically signed by: Pj Maldonado M.D. 12/11/22 21:10 PM Dictated:12/11/222109 Transcribed: 12/11/222109 [facility], [place] [phone] CT Scan Report Patient:SERENA CAMILO Admit Date:12/11/22 MR#:[id number] Address1:[facility] [address] [facility] Acct ID:[id number] Address2:[address] Date:1985 [facility] Zip:[place] [address] Age:37 Location:ED Sex:F Room/Bed: Att Phy: Diagnosis:SEVERE FLANK PAIN R SIDE,INTO BACK Audrey Phy:Melvina Clifford D.OWeston Service Date:12/11/22 Sumeet Phy: Interpreting Phy:Ángel Livingston Phy: Ordering Phy:Raisa Nuñez DO cc: ~ Exam(s): CT ABDOMEN + PELVIS With Contrast EXAM: CT Abdomen and Pelvis With Intravenous Contrast CLINICAL HISTORY: Reason for exam: right sided abd pain. TECHNIQUE: Axial computed tomography images of the abdomen and pelvis with intravenous contrast. Automated exposure control was utilized for the study. A dose lowering technique was utilized adhering to the principles of ALARA. CONTRAST: Contrast must be dictated COMPARISON: No relevant prior studies available. FINDINGS: Lung bases: Unremarkable. No mass. No consolidation. ABDOMEN: Liver: Hepatic steatosis. Gallbladder and bile ducts: Unremarkable. No calcified stones. No ductal dilation. Pancreas: Unremarkable. No mass. No ductal dilation. Spleen: Unremarkable. No splenomegaly. Adrenals: Unremarkable. No mass. Kidneys and ureters: Unremarkable. No hydronephrosis or delayed nephrogram. Stomach and bowel: Diverticulosis, without acute diverticulitis. No small bowel obstruction. No free intraperitoneal air. PELVIS: Appendix: No acute appendicitis. Bladder: Decompressed urinary bladder. Reproductive: Unremarkable as visualized. ABDOMEN and PELVIS: Intraperitoneal space: Unremarkable. No free air. No significant fluid collection. Bones/joints: No acute fracture. No dislocation. Soft tissues: Unremarkable. Vasculature: Unremarkable. No abdominal aortic aneurysm. Lymph nodes: Unremarkable. No enlarged lymph nodes. IMPRESSION: No acute findings in the abdomen or pelvis. Electronically signed by: Ángel Joseph MD 12/11/22 23:57 PM Dictated:12/11/222356 Transcribed: 12/11/222356 [facility], [place] [phone] Nuclear Medicine Report Patient:SERENA CAMILO Admit Date:12/12/22 MR#:[id number] Address1:[address] [facility] Acct ID:[id number] Address2:[address] Date:1985 [facility] Zip:[place] [address] Age:37 Location:3N Sex:F Room/Bed:[facility] Att Phy:Venancio Ta D.O. Diagnosis:ABDOMINAL PAIN, FLANK PAIN Audrey Phy:Melvina Clifford DAudrey Service Date:12/12/22 Fam Phy: Interpreting Phy:Wesly Sanon MDAdmit Phy:Delio Watson MD Ordering Phy:Delio Watson MD cc: ~ NUCLEAR MEDICINE HEPATOBILIARY SCAN WITH EJECTION FRACTION HISTORY: RUQ pain COMPARISON: Abdominal ultrasound 12/11/2022. TECHNIQUE: Immediately following the intravenous administration of 5.0 mCi Tc- 99m Choletec, dynamic anterior abdominal imaging pre/post 1.7 mcg of Kinevac was performed. FINDINGS: Uniform hepatic tracer accumulation is shown. Prompt intrahepatic biliary excretion is seen. The gallbladder, common bile duct, and small bowel are all visualized by 20 minutes. This appearance represents the normal sequence of biliary excretion. The gall bladder ejection fraction following administration of Kinevac was 83% (normal >35%). IMPRESSION: 1. No evidence for cystic duct obstruction. 2. Gallbladder ejection fraction calculated to be 83 %. ACT 112: Negative or not required by law. Electronically signed by: Wesly Sanon M.D. 12/12/2022 2:57 PM Dictated:12/12/22 1456 Transcribed: 12/12/22 1456 --- --- Labs 12/11/22 12/11/22 12/11/22 18:57 18:57 19:05 WBC 8.86 RBC 4.44 Hgb 13.3 Hct 38.8 MCV 87.4 MCH 30.0 MCHC 34.3 RDW Std Deviation 40.9 RDW Coeff of Zainab 12.8 Plt Count 307 MPV 9.7 Immature Gran % (Auto) 0.3 Neut % (Auto) 51.9 Lymph % (Auto) 41.8 Leake % (Auto) 4.5 Eos % (Auto) 1.2 Baso % (Auto) 0.3 Neut # (Auto) 4.59 Lymph # (Auto) 3.70 H Leake # (Auto) 0.40 Eos # (Auto) 0.11 Baso # (Auto) 0.03 Immature Gran # (Auto) 0.03 Sodium 137 Potassium 4.3 Chloride 105 Carbon Dioxide 26 Anion Gap 6 BUN 16 Creatinine 1.19 Est Cr Clr Drug Dosing 65.7 Est GFR ( Amer) 67.1 Est GFR (Non-Af Amer) 57.9 BUN/Creatinine Ratio 13.4 Glucose 113 H Estimat Average Glucose Hemoglobin A1c Calcium 9.7 Phosphorus Magnesium Total Bilirubin 0.4 AST 25 ALT 38 Alkaline Phosphatase 121 H Total Protein 7.7 Albumin 4.4 Globulin 3.3 Albumin/Globulin Ratio 1.3 Lipase 37 Procalcitonin Urine Color Yellow Urine Appearance Clear Urine pH 5.5 Ur Specific [place] 1.017 Urine Protein Negative Urine Glucose (UA) Negative Urine Ketones Negative Urine Blood Negative Urine Nitrite Negative Urine Bilirubin Negative Urine Urobilinogen Negative Ur Leukocyte Esterase Negative SARS-CoV-2 (PCR) Influenza Type A (PCR) Influenza Type B (PCR) RSV (RT-PCR) 12/11/22 12/12/22 12/13/22 19:05 01:32 06:41 WBC 6.20 RBC 4.45 Hgb 13.3 Hct 39.4 MCV 88.5 MCH 29.9 MCHC 33.8 RDW Std Deviation 41.0 RDW Coeff of Zainab 12.7 Plt Count 264 MPV 9.6 Immature Gran % (Auto) Neut % (Auto) Lymph % (Auto) Leake % (Auto) Eos % (Auto) Baso % (Auto) Neut # (Auto) Lymph # (Auto) Leake # (Auto) Eos # (Auto) Baso # (Auto) Immature Gran # (Auto) Sodium Potassium Chloride Carbon Dioxide Anion Gap BUN Creatinine Est Cr Clr Drug Dosing Est GFR ( Amer) Est GFR (Non-Af Amer) BUN/Creatinine Ratio Glucose Estimat Average Glucose Hemoglobin A1c Calcium Phosphorus Magnesium Total Bilirubin AST ALT Alkaline Phosphatase Total Protein Albumin Globulin Albumin/Globulin Ratio Lipase Procalcitonin < 0.05 Urine Color Urine Appearance Urine pH Ur Specific [place] Urine Protein Urine Glucose (UA) Urine Ketones Urine Blood Urine Nitrite Urine Bilirubin Urine Urobilinogen Ur Leukocyte Esterase SARS-CoV-2 (PCR) NEGATIVE Influenza Type A (PCR) Negative Influenza Type B (PCR) Negative RSV (RT-PCR) Negative 12/13/22 12/13/22 12/14/22 06:41 06:41 07:13 WBC 6.86 RBC 4.43 Hgb 13.1 Hct 38.4 MCV 86.7 MCH 29.6 MCHC 34.1 RDW Std Deviation 40.5 RDW Coeff of Zainab 12.8 Plt Count 256 MPV 9.6 Immature Gran % (Auto) Neut % (Auto) Lymph % (Auto) Leake % (Auto) Eos % (Auto) Baso % (Auto) Neut # (Auto) Lymph # (Auto) Leake # (Auto) Eos # (Auto) Baso # (Auto) Immature Gran # (Auto) Sodium 138 Potassium 4.4 Chloride 105 Carbon Dioxide 28 Anion Gap 5 BUN 16 Creatinine 0.91 Est Cr Clr Drug Dosing 88.1 Est GFR ( Amer) 92.8 Est GFR (Non-Af Amer) 80.0 BUN/Creatinine Ratio 17.6 Glucose 84 Estimat Average Glucose 114 Hemoglobin A1c 5.6 Calcium 9.5 Phosphorus 4.0 Magnesium 1.9 Total Bilirubin 0.4 AST 23 ALT 36 Alkaline Phosphatase 100 Total Protein 6.9 Albumin 4.0 Globulin 2.9 Albumin/Globulin Ratio 1.4 Lipase Procalcitonin Urine Color Urine Appearance Urine pH Ur Specific [place] Urine Protein Urine Glucose (UA) Urine Ketones Urine Blood Urine Nitrite Urine Bilirubin Urine Urobilinogen Ur Leukocyte Esterase SARS-CoV-2 (PCR) Influenza Type A (PCR) Influenza Type B (PCR) RSV (RT-PCR) 12/14/22 07:13 WBC RBC Hgb Hct MCV MCH MCHC RDW Std Deviation RDW Coeff of Zainab Plt Count MPV Immature Gran % (Auto) Neut % (Auto) Lymph % (Auto) Leake % (Auto) Eos % (Auto) Baso % (Auto) Neut # (Auto) Lymph # (Auto) Leake # (Auto) Eos # (Auto) Baso # (Auto) Immature Gran # (Auto) Sodium 138 Potassium 4.2 Chloride 103 Carbon Dioxide 30 Anion Gap 5 BUN 14 Creatinine 1.09 Est Cr Clr Drug Dosing 73.6 Est GFR ( Amer) 74.6 Est GFR (Non-Af Amer) 64.3 BUN/Creatinine Ratio 12.8 Glucose 96 Estimat Average Glucose Hemoglobin A1c Calcium 9.5 Phosphorus 4.3 Magnesium 1.9 Total Bilirubin 0.3 AST 27 ALT 38 Alkaline Phosphatase 94 Total Protein 6.8 Albumin 4.0 Globulin 2.8 Albumin/Globulin Ratio 1.4 Lipase Procalcitonin Urine Color Urine Appearance Urine pH Ur Specific [place] Urine Protein Urine Glucose (UA) Urine Ketones Urine Blood Urine Nitrite Urine Bilirubin Urine Urobilinogen Ur Leukocyte Esterase SARS-CoV-2 (PCR) Influenza Type A (PCR) Influenza Type B (PCR) RSV (RT-PCR) Hospital Course (1) Right upper quadrant pain: 37 F with no significant PMH, family history of colon cancer, who presents with abdominal pain, diarrhea x2 days. Admitted for further work-up of abdominal pain Right upper quadrant/ Epigastric pain -During hospitalization, patient remained afebrile andhemodynamically stable. -No leukocytosis. Mildly elevated alkaline phosphatase (121). AST/ALT normal. Lipase normal. -Hepatic steatosis on RUQ US. No gallstones or gallbladder wall thickening seen. CT A/P negative. -US, CT, HIDA all negative--> not indicative of gallbladder pathology at this time -Risk factors present for stomach/duodenal ulcer--> daily NSAID use w/o gi protection, stress -EGD showed mild gastritis which gastroenterology feels could account for the patient's pain -Continue twice daily dosing of Protonix, avoid NSAIDs -Pt notes use of cannabinoids, typically inhaled, to control pain, constipation, and insomnia at home Total Time Total Time Spent Total Time Spent (In Minutes): < 30 min Total Time Includes: Examination of the Patient and Discharge Planning Discharge Plan Discharge Items Patient Disposition: Home - Self-Care Reason For Visit: ABDOMINAL PAIN, FLANK PAIN Discharge Diagnosis: Gastritis Activity: Resume your previous activity Non-emergency contact: Primary Care Provider Call non-emergency contact if: you have any medication questions Follow-up/Referrals: Melvina Clifford D.O. [Primary Care Provider] - Diet: Regular Addtl Attending Provider Instructions: It was our pleasure to care for you at [facility] from 12/11/22 to 12/14/22. You initially presented to the emergency room with concern for abdominal pain. Your work up included labs, gallbladder ultrasound, an abdominal CT scan, and HIDA scan, all of which were negative for a problem with the gallbladder. You were also seen by a GI specialist and had an upper endoscopy (EGD) performed; this revealed gastritis, which is inflammation of the lining of your stomach, which is likely the cause of your abdominal pain. At this time, we feel that it is safe for you to be discharged home. A discharge summary will be sent to your primary care physician to ensure continuity of care. Please bring this discharge summary with you to your next office appointment so that your provider can review it at that time. Follow-up appointments: Make a follow-up appointment with your PCP within the next week. It is very important that you follow up with them shortly after discharge from the hospital. Keep all your follow-up appointments as already scheduled. If you cannot make an appointment, notify your provider. Medications: Your medication list has been reviewed and reconciled upon discharge to ensure accuracy and continuity of care. An updated list of all your medications is included with your hospital discharge paperwork. Please review this list closely, and make note of any changes. A new medication, Protonix, has been added to your medication list. You should take this twice a day for two weeks. At your follow up appointment with your primary care doctor, you should discuss a plan for this medication. A prescription for this medication has been sent to your pharmacy ([facility] AVOID NSAIDS (e.g. Ibuprofen, Aleve, Advil) as these can worsen your condition. If you have any issues filling these prescriptions, please call [phone] and ask to leave a message for Dr. Hardin. Take your medications as instructed; do not skip a dose of your medicines. Make sure all of your doctors know every medicine you are taking (including [id number] medicines, vitamins, and supplements). Call your primary care provider before taking any new medicines (including over- the- counter medicines, vitamins, and supplements), because some of these may interact with your current medications, or may make your symptoms worse. Tell yo ur primary care provider if you cannot afford your medications. CONTACT YOUR PRIMARY CARE PROVIDER if you experience any of the following: Worsening of symptoms Fever, chills, or fatigue Difficulty following your treatment plan, or difficulty taking medications CALL 911 OR GO TO THE EMERGENCY DEPARTMENT if you experience any of the following: Sudden, severe abdominal pain or nausea/vomiting Severe chest pain, or chest pain that radiates (moves) to your jaw or arm Sudden, severe shortness of breath or difficulty breathing Thank you for allowing us to participate in your care. Pending Studies at Discharge: Yes Studies:: pathology from biopsies taken during EGD Stand-Alone Forms: My [facility] [employer], Smoking Cessation Medications and DC Order Prescriptions: New pantoprazole 40 mg tablet,delayed release (DR/EC) 40 mg PO BID 14 Days Qty: 28 0RF Discontinued ibuprofen [Advil] 200 mg Tablet 400 mg PO DIRECTED PRN (Reason: PAIN/FEVER) Discharge Orders: Discharge Order (Routine); Ordered 12/14/22 Ordered By: Shea Hardin Admission Data Admit Date/Time: 12/12/22 01:34 Attending Provider: Jessica Lindo Admit Provider: Delio Watson Primary Care Provider: Melvina Clifford Other Providers: Александр Moses Other Interventions: Discharge Summary Assessment (RN) Last Done: 12/14/22 14:53 Supervising Physician Co-Signing Physician Notes I personally examined the patient and verified all mosley points of history and exam, discussed case, and agree with decision making and plan documented by Dr. Hardin. Patient improved and able to tolerate p.o., she did endorse some nausea and had one episode of vomiting, pain was controlled. Patient states that she does utilize cannabinoids with benefit when at home, we discussed how to obtain a medical card so that she has access to noninhaled formulations. When reevaluated later in the afternoon, patient feeling much better and ready to go home. Advised continued PPI therapy, avoidance of NSAIDs, and follow-up with PCP. Resident Activity Tracking Resident Involvement: Resident Care Provided Care Provided: Adult [facility]
[2022-12-14] MEDS: PANTOprazole 40 MG in SYRINGE 0 ML IV SCH (08:45)
[2022-12-14] MEDS ORDERED: POLYETHYLENE (MIRALAX) 17 GM PACK PO SCH (09:00)
[2022-12-14] MEDS: ONDANSETRON INJ 2 MG/ML 2 ML VIAL IV PRN (10:14)
[2022-12-14] MEDS ORDERED: SENNA 8.6 MG TAB PO SCH (10:15)
[2022-12-14] MEDS ORDERED: MoRPHine SULFATE 2 MG/ML CARP IV PRN (11:49)
[2022-12-14] MEDS ORDERED: MoRPHine SULFATE 4 MG/ML 1 ML CARP\\VIAL IV PRN (11:49)
--- NOTE | 2022-12-14 11:57 | Billing Data ---
Date of Service December 12, 2022 Coding Level of Care Code 33095 INT INP/OBS CARE
[2022-12-14] MEDS ORDERED: SUCRALFATE 1 GM/10 ML UDC PO SCH (13:00)
== END 2022-12-14 15:19 | disposition home or self-care (01) ==
LOC: ED 18:18 → 3N 12-12 01:34 → SUATTDRO 12-12 01:34 → INTOOBSV 12-12 01:34 → 3N 12-12 04:11